=== PATIENT | female | born 1945 | race Caucasian/White ===

== ENCOUNTER 2016-12-16 17:39 | Inpatient (IN) | payer OTHER ==
[~2016-12-16] VITALS: Ht 162.6 cm; Wt 47.6 kg
[2016-12-16 17:51] VITALS: BP_SYST 172
[2016-12-16] MEDS ORDERED: IPRATROPIUM BROM 0.5 MG/2.5 ML VIAL.NEB (ATROVENT) INH ONE (18:00)
[2016-12-16] MEDS ORDERED: ALBUTEROL SULFATE 0.083% 2.5 MG/3 ML VIAL.NEB INH PRN (18:00)
[2016-12-16] MEDS ORDERED: LEVOFLOXACIN 500 MG/D5W 100 ML IV ONE (18:00)
[2016-12-16 18:44] LABS: BASOPHILS # (AUTO) 0.1 K/uL (0.0-0.2); BASOPHILS % (AUTO) 0.6 % (0.0-2.0); HEMATOCRIT 43.4 % (36-48); HEMOGLOBIN 13.7 g/dL (12.0-16.0); LYMPHOCYTES # (AUTO) 1.3 K/uL (1.0-5.5); LYMPHOCYTES % (AUTO) 10.5 % (20.5-51.5); MEAN CORPUSCULAR HEMOGLOBIN 27 pg (27-31); MEAN CORPUSCULAR HGB CONC 32 % (32-36); MEAN CORPUSCULAR VOLUME 87 fL (79.0-98.0); MONOCYTES # (AUTO) 0.4 K/uL (0.0-1.0); MONOCYTES % (AUTO) 3.6 % (1.7-9.3); NEUTROPHILS # (AUTO) 10.5 K/uL (1.8-7.7); NEUTROPHILS % (AUTO) 85.3 % (40.0-70.0); PLATELET COUNT (AUTO) 666 K/uL (130-430); RED BLOOD CELL COUNT(AUTO) 5.01 MIL/uL (4.2-6.2); RED CELL DISTRIBUTION WIDTH 14.5 % (9.0-15.0); WHITE BLOOD COUNT (AUTO) 12.3 K/uL (4.8-10.8)
[2016-12-16] MEDS ORDERED: methylPREDNISolone SOD SUCC/PF 62.5 MG/ML VIAL IVP ONE (18:45)
[2016-12-16] MEDS ORDERED: LevALBUTEROL HCL 1.25 MG/0.5 ML *CONC.* VIAL.NEB (XOPENEX CONC.) INH ONE (18:45)
[2016-12-16 18:54] LABS: ANION GAP 5 (5-15); CALCIUM 10.2 mg/dL (8.4-11.0); CHLORIDE 103 mmol/L (98-107); CREATININE 1.37 mg/dL (0.55-1.30); GLUCOSE 126 mg/dL (70-99); POTASSIUM 4.7 mmol/L (3.5-5.1); SODIUM SERUM 139 mmol/L (136-145); UREA NITROGEN, BLOOD 42 mg/dL (8-21)
[2016-12-16 18:55] LABS: BLOOD GAS PH 7.418 (7.350-7.450)
[2016-12-16 18:56] LABS: ABG TOTAL HEMOGLOBIN 14.1 G/dL (12.0-18.0); BLOOD GAS BASE EXCESS 4.7 mmol/L (-3.0-3.0); BLOOD GAS HHB 3.3 % (0.0-6.0); BLOOD O2Hb% 95.5 % (94.0-97.0)
[2016-12-16 18:59] LABS: ALANINE AMINOTRANSFERASE 42 U/L (12-78); ALBUMIN 4.3 g/dL (3.4-4.8); ASPARTATE AMINOTRANSFERASE 29 U/L (10-37); TOTAL BILIRUBIN 0.4 mg/dL (0.0-1.0); TOTAL PROTEIN, SERUM 7.8 g/dL (6.4-8.3)
[2016-12-16 19:06] LABS: INR 0.9 (0.8-1.2); PROTHROMBIN TIME 9.9 SECS (9.5-12.5)
[2016-12-16] MEDS ORDERED: NS 500 ML IV ONE (19:30)
[2016-12-16] MEDS ORDERED: LEVALBUTEROL HCL 0.63 MG/3 ML VIAL.NEB INH PRN (19:45)
[2016-12-16 19:57] LABS: BILIRUBIN,URINE NEGATIVE (NEGATIVE); BLOOD, URINE NEGATIVE (NEGATIVE); CLARITY/URINE HAZY (CLEAR); COLOR,URINE YELLOW (YELLOW); GLUCOSE,URINE NEGATIVE (NEGATIVE); KETONES,URINE NEGATIVE (NEGATIVE); LEUKOCYTE ESTERASE ,URINE 1+ (NEGATIVE); NITRITE, URINE NEGATIVE (NEGATIVE); PROTEIN URINE TRACE (NEGATIVE); UROBILINOGEN,URINE 0.2 (0.2-1.0)
[2016-12-16 20:27] LABS: BACTERIA,URINE MODERATE /HPF (None Seen); RBC,URINE 0-3 /HPF (0-3)
[2016-12-16 20:28] LABS: MUCUS,URINE 2+ /LPF (None Seen)
[2016-12-16 21:04] VITALS: BP_SYST 126
[2016-12-16 21:17] VITALS: BP_SYST 126
[2016-12-16] MEDS: HYDROcodone/ACETAMIN 10-325 MG TAB PO PRN (21:23)
[2016-12-16 21:48] VITALS: BP_SYST 126
[2016-12-16] MEDS ORDERED: FLUT1AER INH (22:25)
[2016-12-16] MEDS ORDERED: BUPR-120 PO (22:25)
[2016-12-16] MEDS ORDERED: HYDR-4100 PO (22:25)
[2016-12-16] MEDS ORDERED: SIMV20TA2 PO (22:25)
[2016-12-16] MEDS ORDERED: DOXY-4 PO (22:25)
[2016-12-16] MEDS ORDERED: SOM350 PO (22:25)
[2016-12-16] MEDS ORDERED: IPRA4AER INH (22:25)
[2016-12-16] MEDS ORDERED: ROPI1TAB16 PO (22:25)
[2016-12-17 01:41] VITALS: BP_SYST 154
[2016-12-17] MEDS: HYDROcodone/ACETAMIN 10-325 MG TAB PO PRN ×4 (03:14→22:22)
[2016-12-17] MEDS: methylPREDNISolone SOD SUCC/PF 62.5 MG/ML VIAL IVP SCH ×3 (06:24→22:22)
[2016-12-17 07:24] LABS: LYMPHOCYTES # (AUTO) 1.6 K/uL (1.0-5.5)
[2016-12-17 07:25] LABS: ALANINE AMINOTRANSFERASE 42 U/L (12-78); ALBUMIN 3.9 g/dL (3.4-4.8); ANION GAP 7 (5-15); ASPARTATE AMINOTRANSFERASE 29 U/L (10-37); CALCIUM 9.2 mg/dL (8.4-11.0); CHLORIDE 97 mmol/L (98-107); CREATININE 1.17 mg/dL (0.55-1.30); GLUCOSE 108 mg/dL (70-99); POTASSIUM 4.3 mmol/L (3.5-5.1); SODIUM SERUM 136 mmol/L (136-145); TOTAL BILIRUBIN 0.3 mg/dL (0.0-1.0); TOTAL PROTEIN, SERUM 7.2 g/dL (6.4-8.3); UREA NITROGEN, BLOOD 37 mg/dL (8-21)
[2016-12-17 07:41] LABS: BASOPHILS % (AUTO) 0.2 % (0.0-2.0); HEMATOCRIT 39.2 % (36-48); HEMOGLOBIN 12.8 g/dL (12.0-16.0); LYMPHOCYTES % (AUTO) 15.4 % (20.5-51.5); MEAN CORPUSCULAR HEMOGLOBIN 29 pg (27-31); MEAN CORPUSCULAR HGB CONC 33 % (32-36); MEAN CORPUSCULAR VOLUME 87 fL (79.0-98.0); MONOCYTES # (AUTO) 0.6 K/uL (0.0-1.0); MONOCYTES % (AUTO) 5.6 % (1.7-9.3); NEUTROPHILS # (AUTO) 8.3 K/uL (1.8-7.7); NEUTROPHILS % (AUTO) 78.8 % (40.0-70.0); RED BLOOD CELL COUNT(AUTO) 4.51 MIL/uL (4.2-6.2); RED CELL DISTRIBUTION WIDTH 14.1 % (9.0-15.0); WHITE BLOOD COUNT (AUTO) 10.5 K/uL (4.8-10.8)
[2016-12-17 08:26] VITALS: BP_SYST 154
[2016-12-17] MEDS: PANTOPRAZOLE GRANULES PACKET 40 MG GT SCH (09:01)
[2016-12-17 09:09] LABS: PLATELET COUNT (AUTO) 590 K/uL (130-430)
[2016-12-17 12:17] VITALS: BP_SYST 152
[2016-12-17] MEDS ORDERED: ENOXAPARIN SODIUM 30 MG/0.3 ML SYRINGE SUBCUT ONE (13:00)
[2016-12-17] MEDS: IPRATROPIUM BROM 0.5 MG/2.5 ML VIAL.NEB (ATROVENT) INH SCH (13:57)
[2016-12-17] MEDS: ALBUTEROL SULFATE 0.083% 2.5 MG/3 ML VIAL.NEB INH SCH (13:57)
[2016-12-17 16:39] VITALS: BP_SYST 140
[2016-12-17] MEDS: LEVOFLOXACIN 250 MG/D5W 50 ML IV SCH (17:15)
[2016-12-17] MEDS ORDERED: LEVOFLOXACIN 500 MG/D5W 100 ML IV SCH (18:00)
[2016-12-17 19:45] VITALS: BP_SYST 139
[2016-12-17] MEDS: TEMAZEPAM 15 MG CAPSULE PO PRN (22:22)
[2016-12-17 23:43] VITALS: BP_SYST 160
[2016-12-18] MEDS: IPRATROPIUM BROM 0.5 MG/2.5 ML VIAL.NEB (ATROVENT) INH SCH ×3 (01:00→20:52)
[2016-12-18] MEDS: ALBUTEROL SULFATE 0.083% 2.5 MG/3 ML VIAL.NEB INH SCH ×3 (01:00→20:52)
[2016-12-18 04:26] VITALS: BP_SYST 152
[2016-12-18] MEDS: methylPREDNISolone SOD SUCC/PF 62.5 MG/ML VIAL IVP SCH ×2 (05:13→21:27)
[2016-12-18 08:00] VITALS: BP_SYST 152
[2016-12-18] MEDS: PANTOPRAZOLE GRANULES PACKET 40 MG GT SCH (09:41)
[2016-12-18] MEDS: ENOXAPARIN SODIUM 30 MG/0.3 ML SYRINGE SUBCUT SCH (09:42)
[2016-12-18] MEDS: HYDROcodone/ACETAMIN 10-325 MG TAB PO PRN ×2 (09:54→17:27)
[2016-12-18] MEDS: ACETAMINOPHEN 325 MG TABLET PO PRN (14:36)
[2016-12-18] MEDS: LEVOFLOXACIN 250 MG/D5W 50 ML IV SCH (17:27)
[2016-12-18 20:00] VITALS: BP_SYST 155
[2016-12-18] MEDS: BUDESONIDE 0.5 MG/2 ML AMPUL.NEB INH SCH (20:52)
[2016-12-18] MEDS: TEMAZEPAM 15 MG CAPSULE PO PRN (21:36)
[2016-12-19] VITALS (11 sets, daily range): BP systolic 126–170
[2016-12-19] MEDS: methylPREDNISolone SOD SUCC/PF 62.5 MG/ML VIAL IVP SCH ×3 (05:07→22:47)
[2016-12-19] MEDS: HYDROcodone/ACETAMIN 10-325 MG TAB PO PRN ×3 (05:45→15:18)
[2016-12-19] MEDS: ALBUTEROL SULFATE 0.083% 2.5 MG/3 ML VIAL.NEB INH PRN ×2 (05:49→09:39)
[2016-12-19] MEDS: IPRATROPIUM BROM 0.5 MG/2.5 ML VIAL.NEB (ATROVENT) INH PRN ×2 (05:49→09:39)
[2016-12-19] MEDS: IPRATROPIUM BROM 0.5 MG/2.5 ML VIAL.NEB (ATROVENT) INH SCH ×4 (07:00→19:51)
[2016-12-19] MEDS: ALBUTEROL SULFATE 0.083% 2.5 MG/3 ML VIAL.NEB INH SCH ×4 (07:00→19:51)
[2016-12-19] MEDS: BUDESONIDE 0.5 MG/2 ML AMPUL.NEB INH SCH ×2 (09:39→20:41)
[2016-12-19] MEDS: PANTOPRAZOLE GRANULES PACKET 40 MG GT SCH (09:51)
[2016-12-19] MEDS: ENOXAPARIN SODIUM 30 MG/0.3 ML SYRINGE SUBCUT SCH (09:52)
[2016-12-19] MEDS: LEVOFLOXACIN 250 MG/D5W 50 ML IV SCH (18:00)
[2016-12-19] MEDS ORDERED: DILTIAZEM HCL 25 MG/5 ML VIAL IVP ONE ×2 (22:00→23:00)
[2016-12-19] MEDS ORDERED: DILTIAZEM HCL 125 MG in D5W 100 ML IV SCH (22:45)
[2016-12-19] MEDS: cloNIDine HCL 0.1 MG TABLET PO PRN (22:46)
[2016-12-19] MEDS ORDERED: DILTIAZEM HCL 125 MG/25 ML VIAL IV ONE (22:57)
[2016-12-19] MEDS ORDERED: DILTIAZEM HCL 25 MG/5 ML VIAL ONE (23:04)
[2016-12-19] MEDS: ALPRAZolam 0.25 MG TABLET PO PRN (23:17)
[2016-12-20] VITALS (24 sets, daily range): BP systolic 110–183
[2016-12-20] MEDS: HYDROcodone/ACETAMIN 10-325 MG TAB PO PRN ×3 (00:17→19:57)
[2016-12-20] MEDS: TEMAZEPAM 15 MG CAPSULE PO PRN ×2 (00:18→23:46)
[2016-12-20] MEDS: ALBUTEROL SULFATE 0.083% 2.5 MG/3 ML VIAL.NEB INH SCH ×2 (01:00→07:46)
[2016-12-20] MEDS: IPRATROPIUM BROM 0.5 MG/2.5 ML VIAL.NEB (ATROVENT) INH SCH ×2 (01:00→07:46)
[2016-12-20] MEDS: methylPREDNISolone SOD SUCC/PF 62.5 MG/ML VIAL IVP SCH (06:06)
[2016-12-20] MEDS: cloNIDine HCL 0.1 MG TABLET PO PRN ×2 (06:07→21:32)
[2016-12-20] MEDS: BUDESONIDE 0.5 MG/2 ML AMPUL.NEB INH SCH (07:46)
[2016-12-20] MEDS: PANTOPRAZOLE SODIUM 40 MG TAB PO SCH (08:21)
[2016-12-20] MEDS: ENOXAPARIN SODIUM 30 MG/0.3 ML SYRINGE SUBCUT SCH (08:21)
[2016-12-20] MEDS: ALPRAZolam 0.25 MG TABLET PO PRN ×3 (09:03→20:43)
[2016-12-20] MEDS ORDERED: COMMUNICATION ORDER XX ONE (10:15)
[2016-12-20] MEDS ORDERED: DILTIAZEM HCL 90 MG TABLET PO ONE (10:15)
[2016-12-20] MEDS: LEVALBUTEROL HCL 0.63 MG/3 ML VIAL.NEB INH SCH ×2 (13:24→19:41)
[2016-12-20] MEDS: DILTIAZEM HCL 90 MG TABLET PO SCH ×2 (14:33→21:30)
[2016-12-20] MEDS: LEVOFLOXACIN 250 MG/D5W 50 ML IV SCH (20:27)
[2016-12-20] MEDS ORDERED: methylPREDNISolone SOD SUCC 40 MG/ML VIAL IVP SCH (21:00)
[2016-12-20] MEDS: PREDNISONE 10 MG TABLET PO SCH (21:31)
[2016-12-21] VITALS (24 sets, daily range): BP systolic 95–174
[2016-12-21] MEDS: LEVALBUTEROL HCL 0.63 MG/3 ML VIAL.NEB INH SCH ×4 (00:14→20:15)
[2016-12-21] MEDS: LORazepam 2 MG/ML VIAL IVP PRN ×2 (01:22→09:59)
[2016-12-21] MEDS: DILTIAZEM HCL 90 MG TABLET PO SCH (06:40)
[2016-12-21 08:21] LABS: EOSINOPHILS % (AUTO) 0.1 % (0.0-4.0)
[2016-12-21 08:25] LABS: BASOPHILS # (AUTO) 0.3 K/uL (0.0-0.2); BASOPHILS % (AUTO) 2.2 % (0.0-2.0); HEMATOCRIT 41.1 % (36-48); HEMOGLOBIN 13.2 g/dL (12.0-16.0); LYMPHOCYTES # (AUTO) 1.5 K/uL (1.0-5.5); LYMPHOCYTES % (AUTO) 9.4 % (20.5-51.5); MEAN CORPUSCULAR HEMOGLOBIN 28 pg (27-31); MEAN CORPUSCULAR HGB CONC 32 % (32-36); MEAN CORPUSCULAR VOLUME 88 fL (79.0-98.0); MONOCYTES % (AUTO) 6.2 % (1.7-9.3); NEUTROPHILS # (AUTO) 12.7 K/uL (1.8-7.7); NEUTROPHILS % (AUTO) 82.1 % (40.0-70.0); PLATELET COUNT (AUTO) 698 K/uL (130-430); RED BLOOD CELL COUNT(AUTO) 4.68 MIL/uL (4.2-6.2); RED CELL DISTRIBUTION WIDTH 15.1 % (9.0-15.0); WHITE BLOOD COUNT (AUTO) 15.5 K/uL (4.8-10.8)
[2016-12-21 08:32] LABS: ALANINE AMINOTRANSFERASE 59 U/L (12-78); ALBUMIN 4.1 g/dL (3.4-4.8); ANION GAP 3 (5-15); ASPARTATE AMINOTRANSFERASE 37 U/L (10-37); CALCIUM 9.5 mg/dL (8.4-11.0); CHLORIDE 100 mmol/L (98-107); CREATININE 0.86 mg/dL (0.55-1.30); GLUCOSE 133 mg/dL (70-99); POTASSIUM 3.8 mmol/L (3.5-5.1); SODIUM SERUM 137 mmol/L (136-145); TOTAL BILIRUBIN 0.4 mg/dL (0.0-1.0); TOTAL PROTEIN, SERUM 7.4 g/dL (6.4-8.3); UREA NITROGEN, BLOOD 26 mg/dL (8-21)
[2016-12-21] MEDS: ENOXAPARIN SODIUM 30 MG/0.3 ML SYRINGE SUBCUT SCH (08:49)
[2016-12-21] MEDS: PANTOPRAZOLE SODIUM 40 MG TAB PO SCH (08:49)
[2016-12-21] MEDS: PREDNISONE 10 MG TABLET PO SCH ×2 (08:50→20:31)
[2016-12-21] MEDS ORDERED: DILTIAZEM HCL 300 MG CAP.SR.24H PO SCH (09:00)
[2016-12-21] MEDS: DILTIAZEM HCL 120 MG CAP.SR.24H PO SCH (09:52)
[2016-12-21] MEDS: DILTIAZEM HCL 180 MG CAP.SR.24H PO SCH (09:53)
[2016-12-21] MEDS: cloNIDine HCL 0.1 MG TABLET PO PRN (11:52)
[2016-12-21] MEDS: ALPRAZolam 0.25 MG TABLET PO PRN (12:21)
[2016-12-21] MEDS: LEVOFLOXACIN 250 MG/D5W 50 ML IV SCH (18:24)
[2016-12-21] MEDS: buPROPion HCL 150 MG XL TAB PO SCH (20:31)
[2016-12-21] MEDS: CARISOPRODOL 350 MG TABLET PO SCH (20:31)
[2016-12-22] MEDS: LEVALBUTEROL HCL 0.63 MG/3 ML VIAL.NEB INH SCH ×4 (01:00→20:00)
[2016-12-22 08:00] VITALS: BP_SYST 140
[2016-12-22] MEDS: ENOXAPARIN SODIUM 30 MG/0.3 ML SYRINGE SUBCUT SCH (08:44)
[2016-12-22] MEDS: DILTIAZEM HCL 180 MG CAP.SR.24H PO SCH (08:44)
[2016-12-22] MEDS: ACETAMINOPHEN 325 MG TABLET PO PRN (08:45)
[2016-12-22] MEDS: buPROPion HCL 150 MG XL TAB PO SCH ×2 (08:45→20:53)
[2016-12-22] MEDS: DILTIAZEM HCL 120 MG CAP.SR.24H PO SCH (08:45)
[2016-12-22] MEDS: PANTOPRAZOLE SODIUM 40 MG TAB PO SCH (08:45)
[2016-12-22] MEDS: PREDNISONE 10 MG TABLET PO SCH ×2 (08:45→20:48)
[2016-12-22] MEDS: ALPRAZolam 0.25 MG TABLET PO PRN ×2 (10:41→20:48)
[2016-12-22 12:00] VITALS: BP_SYST 148
[2016-12-22] MEDS: IPRATROPIUM BROM 0.5 MG/2.5 ML VIAL.NEB (ATROVENT) INH SCH ×2 (13:50→20:00)
[2016-12-22] MEDS ORDERED: DILTIAZEM HCL 25 MG/5 ML VIAL IVP ONE ×2 (15:45→16:20)
[2016-12-22] MEDS ORDERED: DILTIAZEM HCL 25 MG/5 ML VIAL ONE ×2 (15:47→16:24)
[2016-12-22 16:00] VITALS: BP_SYST 159
[2016-12-22 18:21] VITALS: BP_SYST 158
[2016-12-22] MEDS: LEVOFLOXACIN 250 MG/D5W 50 ML IV SCH (19:24)
[2016-12-22 19:30] VITALS: BP_SYST 156
[2016-12-22] MEDS: CARISOPRODOL 350 MG TABLET PO SCH (20:48)
[2016-12-23] VITALS: BP_SYST 140
[2016-12-23] MEDS: LEVALBUTEROL HCL 0.63 MG/3 ML VIAL.NEB INH SCH ×3 (00:20→13:42)
[2016-12-23] MEDS: IPRATROPIUM BROM 0.5 MG/2.5 ML VIAL.NEB (ATROVENT) INH SCH ×3 (00:20→13:42)
[2016-12-23 04:03] VITALS: BP_SYST 157
[2016-12-23] MEDS: ALPRAZolam 0.25 MG TABLET PO PRN ×2 (04:37→13:34)
[2016-12-23] MEDS ORDERED: HYDROcodone/ACETAMIN 5-325 MG TAB (NORCO/ VICODIN) PO PRN (05:15)
[2016-12-23] MEDS ORDERED: HYDROcodone/ACETAMIN 10-325 MG TAB PO ONE (06:00)
[2016-12-23 06:30] LABS: ALANINE AMINOTRANSFERASE 51 U/L (12-78); ALBUMIN 3.7 g/dL (3.4-4.8); ANION GAP 4 (5-15); ASPARTATE AMINOTRANSFERASE 25 U/L (10-37); CALCIUM 8.9 mg/dL (8.4-11.0); CHLORIDE 99 mmol/L (98-107); CREATININE 0.88 mg/dL (0.55-1.30); GLUCOSE 125 mg/dL (70-99); POTASSIUM 3.9 mmol/L (3.5-5.1); SODIUM SERUM 137 mmol/L (136-145); TOTAL BILIRUBIN 0.3 mg/dL (0.0-1.0); TOTAL PROTEIN, SERUM 6.8 g/dL (6.4-8.3); UREA NITROGEN, BLOOD 20 mg/dL (8-21)
[2016-12-23 06:41] LABS: HEMATOCRIT 36.7 % (36-48); HEMOGLOBIN 12.1 g/dL (12.0-16.0); MEAN CORPUSCULAR HEMOGLOBIN 29 pg (27-31); MEAN CORPUSCULAR HGB CONC 33 % (32-36); MEAN CORPUSCULAR VOLUME 87 fL (79.0-98.0); PLATELET COUNT (AUTO) 666 K/uL (130-430); RED BLOOD CELL COUNT(AUTO) 4.21 MIL/uL (4.2-6.2)
[2016-12-23 06:47] LABS: WHITE BLOOD COUNT (AUTO) 13.8 K/uL (4.8-10.8)
[2016-12-23 07:58] LABS: ATYPICAL LYMPHOCYTES % 0 % (0-0); BAND % (MANUAL) 2 % (0-6); BASOPHILS % (MANUAL) 0 % (0-2); EOSINOPHILS % (MANUAL) 0 % (0-7); LYMPHOCYTES % (MANUAL) 8 % (20-46); MONOCYTES % (MANUAL) 4 % (0-11)
[2016-12-23 08:00] VITALS: BP_SYST 156
[2016-12-23] MEDS ORDERED: HYDROcodone/ACETAMIN 10-325 MG TAB PO PRN (08:30)
[2016-12-23] MEDS: DILTIAZEM HCL 120 MG CAP.SR.24H PO SCH (08:34)
[2016-12-23] MEDS: DILTIAZEM HCL 180 MG CAP.SR.24H PO SCH (08:35)
[2016-12-23] MEDS: PREDNISONE 10 MG TABLET PO SCH (08:35)
[2016-12-23] MEDS: PANTOPRAZOLE SODIUM 40 MG TAB PO SCH (08:36)
[2016-12-23] MEDS: ENOXAPARIN SODIUM 30 MG/0.3 ML SYRINGE SUBCUT SCH (08:37)
[2016-12-23] MEDS: buPROPion HCL 150 MG XL TAB PO SCH (08:42)
[2016-12-23 09:43] LABS: BLOOD GAS PH 7.378 (7.350-7.450)
[2016-12-23 09:44] LABS: BLOOD GAS BASE EXCESS 3.6 mmol/L (-3.0-3.0); BLOOD GAS COHb% 0.9 % (0.5-1.5); BLOOD GAS HHB 12.3 % (0.0-6.0); BLOOD O2Hb% 86.5 % (94.0-97.0)
[2016-12-23 10:19] VITALS: BP_SYST 153
[2016-12-23 12:00] VITALS: BP_SYST 142
[2016-12-23 16:00] VITALS: BP_SYST 153
[2016-12-23] MEDS: LEVOFLOXACIN 250 MG/D5W 50 ML IV SCH (17:25)
[2016-12-23] MEDS ORDERED: METOPROLOL SUCCINATE 25 MG TAB.SR.24H (TOPROL XL) PO ONE (18:30)
== END 2016-12-23 19:27 | DRG 871 ==
LOC: SED 17:39 → SMU 19:40 → SIC 12-19 21:36 → STU 12-22 18:52
PROVIDERS: ADMIT Internal Medicine Hospice and Palliative Medicine; ATTEND Internal Medicine Hospice and Palliative Medicine
DX: A41.9 Sepsis, unspecified organism (principal); J96.01 Acute respiratory failure with hypoxia; J44.0 Chronic obstructive pulmonary disease with (acute) lower respiratory infection; E87.2 Acidosis; I47.1 Supraventricular tachycardia; N39.0 Urinary tract infection, site not specified; J44.1 Chronic obstructive pulmonary disease with (acute) exacerbation; B96.5 Pseudomonas (aeruginosa) (mallei) (pseudomallei) as the cause of diseases classified elsewhere; E78.5 Hyperlipidemia, unspecified; F41.9 Anxiety disorder, unspecified; G25.81 Restless legs syndrome; G47.00 Insomnia, unspecified; M54.9 Dorsalgia, unspecified; E78.00 Pure hypercholesterolemia, unspecified; G89.29 Other chronic pain; H35.52 Pigmentary retinal dystrophy; H54.8 Legal blindness, as defined in USA; I10 Essential (primary) hypertension; J20.9 Acute bronchitis, unspecified; M81.0 Age-related osteoporosis without current pathological fracture; Z87.891 Personal history of nicotine dependence; Z90.711 Acquired absence of uterus with remaining cervical stump; Z79.899 Other long term (current) drug therapy
CPT/HCPCS: 36415; 36600; 71010; 80053; 81000-TC; 82785; 82803-TC; 83605; 83880; 84484; 85007; 85025; 85027; 85610-TC; 87040-TC; 87081; 87086; 87186-TC; 93005; 93306; 94640; 94760; 96365; 96375; 97116-GP; 97530-GP; 99285; J1650; J1956; J2060; J2930; J3490; J7040; J7060; J7512